=== PATIENT | male | born 1955 | race Caucasian/White ===

== ENCOUNTER → 2016-11-23 | Outpatient (CLI) | payer BC | END | disposition home or self-care (01) | LOC: CFH 12:13 | PROVIDERS: ATTEND Family Medicine | DX: M16.12 Unilateral primary osteoarthritis, left hip (principal); M51.36 Other intervertebral disc degeneration, lumbar region; M51.37 Other intervertebral disc degeneration, lumbosacral region; S33.120A Subluxation of L2/L3 lumbar vertebra, initial encounter; X58.XXXA Exposure to other specified factors, initial encounter; Y93.89 Activity, other specified; Y92.89 Other specified places as the place of occurrence of the external cause; Y99.8 Other external cause status | CPT/HCPCS: 72110 ==